=== PATIENT | male | born 1985 | race African-American/Black ===

== ENCOUNTER 2016-06-15 22:59 | Emergency (ER) | payer SELFPAY | END 2016-06-15 23:04 | disposition left against medical advice (07) | LOC: E/R 22:59 | DX: Z53.21 Procedure and treatment not carried out due to patient leaving prior to being seen by health care provider (principal) ==

== ENCOUNTER 2016-09-13 17:18 | Emergency (ER) | payer MEDICAID ==
[~2016-09-13] VITALS: Ht 188 cm; Wt 98.0 kg
[2016-09-13 17:20] VITALS: Ht 188 cm; Wt 98.0 kg
[2016-09-13] MEDS ORDERED: ONDANSETRON (ODT) 4 MG TAB ODT STA (18:48)
[2016-09-13] MEDS ORDERED: SOD CHLORIDE 0.9% 1,000 ML IV ONE (19:00)
[2016-09-13] MEDS ORDERED: IBUPROFEN 200 MG TAB PO ONE (19:00)
--- NOTE | 2016-09-13 19:17 | ERD ---
ER Documentation Chief Complaint Date/Time DATE: 09/13/16 TIME: 19:09 Chief Complaint ABD PAIN , FEVER , VOMITING SINCE LAST NIGHT HPI This 31-year-old male patient presents to emergency room with sudden onset of left-sided glandular pain, ear pain, fever, chills, nausea, vomiting with body aches. Symptoms started at work approximately 930 and has worsened since. Patient has been able to tolerate soup earlier this morning but has been vomiting for the last several hours anytime he eats or drinks anything. Patient has no difficulty speaking, speech is clear, patient's has been treating him with TheraFlu and Mucinex. ROS All systems reviewed and are negative except as per history of present illness. Medications Home Meds Active Scripts Ibuprofen* (Motrin*) 600 Mg Tab, 600 MG PO Q6, #30 TAB Prov:GAVIOTA,ANGELICA 09/13/16 Amoxicillin/Potassium Clav (Amox-Clav 875-125 mg Tablet) 875-125 mg Tab, 1 TAB PO BID for 10 Days, #20 TAB Prov:GAVIOTA,ANGELICA 09/13/16 Allergies Allergies: Coded Allergies: No Known Allergy (Unverified , 01/01/14) PMhx/Soc Hx Alcohol Use: No Physical Exam Vitals Vital Signs Date Time Temp Pulse Resp B/P Pulse Ox O2 Delivery O2 Flow Rate FiO2 09/13/16 20:31 99.3 70 18 142/80 100 09/13/16 17:20 98.6 57 18 140/85 100 Vitals stable, triage notes reviewed Physical Exam Const: Well-nourished, well-hydrated, in no acute distress, obvious not feeling well Head: Atraumatic Eyes: Normal Conjunctiva, PERRLA, EOMI ENT: Bilateral tympanic membranes not visualized related to cerumen impaction , nasal mucosa edematous turbinates +1 mucus noted septum midline no bleeding points, pharynx bright angry red, left tonsillar pillar edematous, uvula rises and falls with pronation, no shift, no visible exudate Neck: Full range of motion..~ No meningismus. Palpable cervical adenopathy Resp: Clear to auscultation bilaterally no rales wheezes or rhonchi Cardio: Regular rate and rhythm, no murmurs Abd: Generalized tenderness, non-tympanic to percussion Skin: No petechiae or rashes Back: Ext: Neur: Awake and alert Psych: Normal Mood and Affect Results 24 hrs Current Medications Medications (Trade) Dose Ordered Sig/Moises Route PRN Reason Start Time Stop Time Status Last Admin Dose Admin Sodium Chloride (NS) 1,000 ml @ 1,000 mls/hr Q1H ONCE IV 09/13/16 19:00 09/13/16 19:59 DC 09/13/16 19:18 Ibuprofen (Motrin) 400 mg ONCE ONCE PO 09/13/16 19:00 09/13/16 19:01 DC 09/13/16 19:18 Ondansetron HCl (Zofran Odt) 4 mg ONCE STAT ODT 09/13/16 18:48 09/13/16 18:52 DC 09/13/16 19:18 Amoxicillin/ Clavulanate Potassium (Augmentin) 875 mg ONCE ONCE PO 09/13/16 19:00 09/13/16 19:01 DC 09/13/16 19:50 Procedures/MDM This pleasant 31-year-old male patient presents to emergency department today for evaluation of nausea, vomiting, fever, chills, body aches, pharyngitis, or otalgia. Symptoms started last night suddenly denies sick contacts. centor score 28 -35% probability of strep pharyngitis. No suspicion for peritonsillar or retropharyngeal abscess. Patient treated with IV normal saline, Zofran, Tylenol, and Augmentin 875 mg 1 tab p.o. in emergency department now. Patient will be discharged home to continue Augmentin 875 mg 1 tab p.o. twice daily 10 days, teaching provided, increase fluids, increase rest, note given to be off work 2 days. Return to emergency department for difficulty swallowing her own saliva. Symptoms not improving as expected. I feel the patient is stable for discharge at this time outpatient management by primary care physician. I have discussed results, examination findings, the treatment plan with the patient and family present prior to discharge. Indications for emergent reevaluation, side effects of medication were also discussed. All questions were answered. Patient verbalizes understanding and agrees with plan of care. Departure Diagnosis: Primary Impression: Strep pharyngitis Condition: Good Patient Instructions: Pharyngitis, Strep (Presumed) Referrals: [facility] Additional Instructions: Thank you for for coming to [facility] for your care today. Please ask your nurse or provider if you have questions about your care today and do not leave until all your questions have been answered. Please use any medications given as directed and follow-up with your doctor (or the doctor you were referred to) in the next 2-3 days. If you do not have a primary care doctor you may follow up at the [facility] (listed below). You may also use motrin and tylenol as needed for fever and/or pain unless instructed otherwise by your provider or nurse. Indications for more urgent follow-up have been discussed, but you may return to the Emergency Department at ANY time for any worrisome or worsening symptoms. If you have abdominal pain, please know that no test or exam you received is perfect and you should follow up within 8 hours for continued pain. If you had any imaging studies today, such as an X-Ray or CT Scan, these studies will be reviewed later by a radiologist. You will be called if there are important findings that were not identified today, so make sure the contact information you provided at registration is correct. If you received any narcotic pain control medicine today, such as Vicodin, Morphine or Dilaudid, your coordination and judgment may be affected for a number of hours. Please do not drive or operate heavy machinery, and you may want someone to assist you at home. If you were given a prescription for narcotic medication, be aware that it is very addictive- use sparingly and only if necessary. ANGELICA MEEK Sep 13, 2016 19:17
[2016-09-13] MEDS: AMOXICILLIN/CLAV 875 MG TAB PO ONE ×2 (19:44→19:50)
[2016-09-13] MEDS ORDERED: AMOX1TAB10 PO (20:16)
[2016-09-13] MEDS ORDERED: IBUP-1542 PO (20:16)
[2016-09-13 20:31] VITALS: BP 142/80; PULSE 70; RESP 18; TEMP 99.3
== END 2016-09-13 20:32 | disposition home or self-care (01) ==
LOC: FTE 17:18
DX: J02.0 Streptococcal pharyngitis (principal)
CPT/HCPCS: J7030; Z7502; Z7610